=== PATIENT | female | born 1965 | race Two or more races ===

== ENCOUNTER 2018-12-24 12:34 | Emergency (ER) | payer SELFPAY ==
--- NOTE | 2018-12-24 13:41 | ER Document Report ---
ED Medical Screen (RME) - General Chief Complaint: Leg Pain Stated Complaint: RIGHT LEG PAIN,NAUSEA,DIZZY Time Seen by Provider: 12/24/18 13:38 Mode of Arrival: Wheelchair Information source: Parent Notes: 53-year-old female presented to ED for pain to the front of the right lower leg x4 days. There is no pain to the back of the leg there is no swelling to the back of the leg. She states she is also had heart palpitations shortness of breath nausea and dizziness. She states her last menstrual period was 4 years ago. Patient is alert oriented respirations regular and unlabored speaking in full sentences. Her blood pressure and pulse are much lower when I saw her than they were at the pivot desk. She has a history of a kidney stone gallbladder removal and a . I have greeted and performed a rapid initial assessment of this patient. A comprehensive ED assessment and evaluation of the patient, analysis of test results and completion of medical decision making process will be conducted by an additional ED providers. Dictation of this chart was performed using voice recognition software; therefore, there may be some unintended grammatical errors. TRAVEL OUTSIDE OF THE [place] IN LAST 30 DAYS: No - Related Data Allergies/Adverse Reactions: No Known Allergies Allergy (Verified 12/24/18 12:37) Physical Exam - Vital signs Vitals: Temp Pulse Resp BP Pulse Ox 98.5 F 98 20 159/111 H 99 12/24/18 12:44 12/24/18 12:44 12/24/18 12:44 12/24/18 12:44 12/24/18 12:44 Course - Vital Signs Vital signs: Temp Pulse Resp BP Pulse Ox 98.5 F 98 20 159/111 H 99 12/24/18 12:44 12/24/18 12:44 12/24/18 12:44 12/24/18 12:44 12/24/18 12:44
[2018-12-24 14:13] LABS: ABSOLUTE EOSINOPHILS # (AUTO) 0.1 10^3/uL (0.0-0.6); ABSOLUTE LYMPHOCYTES (AUTO) 1.7 10^3/uL (0.5-4.7); ABSOLUTE MONOCYTES (AUTO) 0.6 10^3/uL (0.1-1.4); ABSOLUTE NEUT (AUTO) 5.9 10^3/uL (1.7-8.2); BASOPHILS % (AUTO) 0.5 % (0-2); EOSINOPHILS % (AUTO) 0.7 % (0-6); HEMATOCRIT 44.6 % (36.0-47.0); HEMOGLOBIN 15.4 g/dL (12.0-15.5); LYMPHOCYTES % (AUTO) 20.3 % (13-45); MEAN CORPUSCULAR HEMOGLOBIN 30.7 pg (27.0-33.4); MEAN CORPUSCULAR HGB CONC 34.4 g/dL (32.0-36.0); MEAN CORPUSCULAR VOLUME 89 fl (80-97); MONOCYTES % (AUTO) 6.9 % (3-13); PLATELET COUNT 253 10^3/uL (150-450); RED CELL DISTRIBUTION WIDTH 12.6 % (11.5-14.0); SEGMENTED NEUTROPHILS % (AUTO) 71.6 % (42-78); TOTAL CELLS COUNTED % (AUTO) 100 %; WHITE BLOOD COUNT 8.3 10^3/uL (4.0-10.5)
[2018-12-24 14:17] LABS: APPEARANCE,URINE CLEAR; BILIRUBIN,URINE NEGATIVE (NEGATIVE); COLOR,URINE YELLOW; GLUCOSE, URINE NEGATIVE (NEGATIVE); KETONES,URINE NEGATIVE (NEGATIVE); LEUKOCYTE ESTERASE,URINE NEGATIVE (NEGATIVE); NITRITE,URINE NEGATIVE (NEGATIVE); PROTEIN,URINE NEGATIVE (NEGATIVE); UROBILINOGEN,URINE NEGATIVE mg/dL (<2.0)
[2018-12-24 14:31] LABS: ALANINE AMINOTRANSFERASE 41 U/L (9-52); ALKALINE PHOSPHATASE 110 U/L (38-126); ANION GAP 11 (5-19); ASPARTATE AMINO TRANSFERASE 34 U/L (14-36); BILIRUBIN,DIRECT 0.2 mg/dL (0.0-0.4); BILIRUBIN,TOTAL 0.5 mg/dL (0.2-1.3); BLOOD UREA NITROGEN 13 mg/dL (7-20); CALCIUM 10.2 mg/dL (8.4-10.2); CARBON DIOXIDE 28 mmol/L (22-30); CHLORIDE 104 mmol/L (98-107); GLUCOSE 99 mg/dL (75-110); LIPASE 93.2 U/L (23-300); POTASSIUM 4.2 mmol/L (3.6-5.0); SODIUM 142.9 mmol/L (137-145); TOTAL PROTEIN 8.3 g/dL (6.3-8.2)
--- NOTE | 2018-12-24 14:32 | RADIOLOGY REPORT (SQ) ---
EXAM DESCRIPTION: CHEST 2 VIEWS COMPLETED DATE/TIME: 12/24/2018 2:20 pm REASON FOR STUDY: palpitations, right lower leg pain COMPARISON: None. EXAM PARAMETERS: NUMBER OF VIEWS: two views TECHNIQUE: Digital Frontal and Lateral radiographic views of the chest acquired. RADIATION DOSE: NA LIMITATIONS: none FINDINGS: LUNGS AND PLEURA: No opacities, masses or pneumothorax. No pleural effusion. MEDIASTINUM AND HILAR STRUCTURES: No masses or contour abnormalities. HEART AND VASCULAR STRUCTURES: Heart normal size. No evidence for failure. BONES: No acute findings. HARDWARE: None in the chest. OTHER: No other significant finding. IMPRESSION: 1. NO ACUTE RADIOGRAPHIC FINDING IN THE CHEST. TECHNICAL DOCUMENTATION: JOB ID: [id number] [employer]- All Rights Reserved Reading location - IP/workstation name: [email or web address]
[2018-12-24 14:43] LABS: CREATINE KINASE MB 0.25 ng/mL (<4.55)
[2018-12-24 14:53] LABS: TROPONIN I < 0.012 ng/mL
[2018-12-24] MEDS ORDERED: NAPROXEN 250 MG TABLET PO ONE (18:28)
[2018-12-24] MEDS ORDERED: OXYCODONE-ACETAMINOPHEN 5-325 MG TABLET PO ONE (18:29)
[2018-12-24 18:57] LABS: CREATINE KINASE 54 U/L (30-135)
--- NOTE | 2018-12-24 19:27 | EKG REPORT ---
SEVERITY:- NORMAL ECG - SINUS RHYTHM : Confirmed by: Nataly Taylor MD 24-Dec-2018 19:26:49
[2018-12-24 20:07] VITALS: BP 148/92
--- NOTE | 2018-12-24 21:12 | ER Document Report ---
Entered by SONIA CAMPOS SCRIBE 12/24/18 1829 Acting as scribe for:MARCELINO GILLETTE MD ED Extremity Problem, Lower - General Chief Complaint: Leg Pain Stated Complaint: RIGHT LEG PAIN,NAUSEA,DIZZY Time Seen by Provider: 12/24/18 13:38 Mode of Arrival: Wheelchair Information source: Patient Notes: 53-year-old female who presents to the emergency department today with complaints of right lower extremity pain. Patient states she came here on a train from [facility] on November 25 and her pain developed a few days after. Patient states that she believes her pain could be related to the cramped up trip on the train. Patient states she is due to leave to head back to [place] on January 28. Patient states that she has also had some associated heart palpitations, headache, and dizziness. TRAVEL OUTSIDE OF THE [place] IN LAST 30 DAYS: No - Related Data Allergies/Adverse Reactions: No Known Allergies Allergy (Verified 12/24/18 12:37) Past Medical History - General Information source: Parent - Social History Smoking Status: Former Smoker Cigarette use (# per day): No Chew tobacco use (# tins/day): No Frequency of alcohol use: None Drug Abuse: None Lives with: Family Family History: Reviewed & Not Pertinent Patient has suicidal ideation: No Patient has homicidal ideation: No Renal/ Medical History: Reports: Hx Kidney Stones Past Surgical History: Reports: Hx Section Review of Systems - Review of Systems Constitutional: No symptoms reported EENT: No symptoms reported Cardiovascular: See HPI, Dizziness Respiratory: No symptoms reported Gastrointestinal: See HPI, Nausea Genitourinary: No symptoms reported Female Genitourinary: No symptoms reported Musculoskeletal: Other - RLE pain Skin: No symptoms reported Hematologic/Lymphatic: No symptoms reported Neurological/Psychological: See HPI, Headaches -: Yes All other systems reviewed and negative Physical Exam - Vital signs Vitals: Temp Pulse Resp BP Pulse Ox 98.5 F 98 20 159/111 H 99 12/24/18 12:44 12/24/18 12:44 12/24/18 12:44 12/24/18 12:44 12/24/18 12:44 - Notes Notes: Physical Exam: General: Alert, appears well. HEENT: Normocephalic. Atraumatic. PERRL. Extraocular movements intact. Oropharynx clear. Neck: Supple. Non-tender. Respiratory: No respiratory distress. Cardiovascular: Regular rate and rhythm. Abdominal: Normal Inspection. Non-tender. No distension. Normal Bowel Sounds. Back: Non-tender. No deformity or step off. Extremities: Moves all four extremities. Upper extremities: Normal inspection. Normal ROM. Lower extremities: Right anterior tibia tenderness with palpation with slight associated edema. No calf tenderness with palpation. No anterior tibialis tenderness with palpation. Neurological: Normal cognition. AAOx4. Normal speech. Psychological: Normal affect. Normal Mood. Skin: Warm. Dry. Normal color. Course - Vital Signs Vital signs: Temp Pulse Resp BP Pulse Ox 97.5 F 67 16 148/92 H 96 12/24/18 20:02 12/24/18 20:02 12/24/18 20:02 12/24/18 20:02 12/24/18 20:02 - Laboratory Result Diagrams: 12/24/18 13:55 12/24/18 13:55 Laboratory results interpreted by me: 12/24/18 12/24/18 13:55 13:55 Total Protein 8.3 H Urine Blood SMALL H Discharge - Discharge Clinical Impression: [place] splint of right lower extremity Qualifiers: Encounter type: initial encounter Qualified Code(s): S86.891A - Other injury of other muscle(s) and tendon(s) at lower leg level, right leg, initial encounter Condition: Stable Disposition: HOME, SELF-CARE Additional Instructions: Your examination suggest that you have what is commonly known as shinsplints. This is an inflammation of the musculo-tendinous connective tissue over the anterior tibial surface. The treatment for this is nonsteroidal anti-inflammatory medication such as ibuprofen or Aleve. Moist heat. And limit walking to allow the area to heal. Follow-up with a local medical doctor if not improving following the above recommendations. RETURN TO THE EMERGENCY ROOM IF ANY NEW OR WORSENING SYMPTOMS. Scribe Attestation: 12/24/18 19:54 I personally performed the services described in the documentation, reviewed and edited the documentation which was dictated to the scribe in my presence, and it accurately records my words and actions. I personally performed the services described in the documentation, reviewed and edited the documentation which was dictated to the scribe in my presence, and it accurately records my words and actions.
== END 2018-12-24 20:07 | disposition home or self-care (01) ==
LOC: ER 12:34
DX: S86.891A Other injury of other muscle(s) and tendon(s) at lower leg level, right leg, initial encounter (principal); X58.XXXA Exposure to other specified factors, initial encounter; M79.604 Pain in right leg; R00.2 Palpitations; R51 Headache; R42 Dizziness and giddiness; Z87.891 Personal history of nicotine dependence
CPT/HCPCS: 36415; 71046; 80053; 81001; 82550; 82553; 83690; 84484; 84703; 85025; 93005; 93010; 99285